=== PATIENT | male | born 1935 | race Caucasian/White ===

== ENCOUNTER → 2017-10-20 | Outpatient (CLI) | payer OTHER, MEDICARE ==
[~2017-10-20] MED LIST: ASPIRIN81 M2 PO; CAPTOPRIL12.5 MG PO; COUMADIN4 MG PO; GLIPIZIDE ER2.5 MG PO; GLIPIZIDE XL5 MG PO; HYDROCHLOROTHIA25 MG PO; LASIX20 MG PO; LIPITOR80 MG PO; METOPROLOL SUCC25 MG PO; OXYCODONE HCL5 MG PO; RANITIDINE HCL150 MG PO; WARFARIN PO; WARFARIN SODIUM5 MG PO
[2017-10-20 09:25] LABS: HEMATOCRIT 45.8 % (38.0-50.0); HEMOGLOBIN 15.6 G/DL (12.5-16.6); MCH 31.6 PG (29.0-34.0); MCHC 34.1 G/DL (30.0-36.0); MCV 92.9 FL (86-99); PLATELET COUNT 246 K/uL (156-360); RBC DIS.WIDTH-CV 14.5 % (11.8-14.6); RBC DIS.WIDTH-SD 49.6 % (39-53); RED BLOOD COUNT 4.93 M/uL (4.00-5.50)
[2017-10-20 09:49] LABS: PTT 28.9 SEC (25-37)
== END | disposition home or self-care (01) ==
LOC: OPR 08:42 → EDSTATUS 09:00 → OPR 09:00
PROVIDERS: Internal Medicine Pulmonary Disease
PROC: 0BBC3ZX Excision of Right Upper Lung Lobe, Percutaneous Approach, Diagnostic (ICD-10-PCS; principal; 2017-10-20)
DX: C34.11 Malignant neoplasm of upper lobe, right bronchus or lung (principal); J95.811 Postprocedural pneumothorax; F17.200 Nicotine dependence, unspecified, uncomplicated; Z85.828 Personal history of other malignant neoplasm of skin; I25.10 Atherosclerotic heart disease of native coronary artery without angina pectoris; I10 Essential (primary) hypertension; I35.0 Nonrheumatic aortic (valve) stenosis; E78.00 Pure hypercholesterolemia, unspecified; E11.9 Type 2 diabetes mellitus without complications; I27.20 Pulmonary hypertension, unspecified; Z79.01 Long term (current) use of anticoagulants; Z79.82 Long term (current) use of aspirin
CPT/HCPCS: 71045; 77012; 82948; 85027; 85610; 85730; 88305; 88341 TC; 88342 TC; J3010